=== PATIENT | female | born 1970 | race Caucasian/White ===

== ENCOUNTER 2018-11-19 07:39 | Day surgery (SDC) | payer BC ==
--- NOTE | 2018-11-05 06:53 | History and Physical - [facility] ---
CHIEF COMPLAINT/HISTORY OF CHIEF COMPLAINT: This patient presents with a history of an intractable lumbar radiculopathy. Due to the failure of therapy a spinal cord stimulator trial was conducted on 10/06/18 with 75+% pain control. Due to the failure of all therapy and the success of the trial, she presents today for implantation of a permanent system. PAST MEDICAL HISTORY: Hypertension. PAST SURGICAL HISTORY: Gallbladder surgery, gastric surgery, and hysterectomy. MEDICATIONS ON ADMISSION: List to be provided. ALLERGIES: BACTRIM. FAMILY/PSYCHOSOCIAL HISTORY: Social history - Caffeine. Family history - Diabetes, coronary artery disease and cancer. SYSTEMS REVIEW: The patient is appropriate in no acute distress. The remainder of the systems review is positive for glasses, blood pressure, and degenerative arthritis. PHYSICAL EXAMINATION: Height is 5'5", weight is 200 pounds. No vital signs. HEENT: Within normal limits. LUNGS: Clear. HEART: Rapid and regular. ABDOMEN: Nontender. MUSCULOSKELETAL: Examination of the musculoskeletal system shows diffuse tenderness throughout the lumbar spine. Range of motion causing pain into both legs across the front and back surface. Ambulation - No assistive device utilized. There currently are no appreciable motor or sensory abnormalities to the extremities. NEUROLOGIC: Cranial nerves are intact. IMPRESSION: LUMBAR RADICULOPATHY, ICD-10 CODE M54.16 AND M54.17. PLAN: The patient is here for implantation of a permanent spinal cord stimulator after successful trial and failure of therapy. The procedure will be considered outpatient although an overnight stay will be evaluated. The potential risks, side effect, and complications have all been reviewed and discussed. JOB NUMBER: [id number] MTDD
--- NOTE | 2018-11-19 06:36 | History and Physical - [facility] ---
CHIEF COMPLAINT/HISTORY OF CHIEF COMPLAINT: This patient presents with a history of intractable lumbar radiculopathy. Due to the failure of therapy and the success of a spinal cord stimulator trial on 10/06/18, the patient presents for implantation of a permanent system. PAST MEDICAL HISTORY: Hypertension. PAST SURGICAL HISTORY: Gallbladder, gastric surgery, and hysterectomy. MEDICATIONS ON ADMISSION: List to be provided. ALLERGIES: BACTRIM. FAMILY/PSYCHOSOCIAL HISTORY: Social history - Caffeine. Family history - Diabetes, coronary artery disease and cancer. SYSTEMS REVIEW: The patient is appropriate in no acute distress. The remainder of the systems review is positive for glasses, blood pressure, and degenerative arthritis. PHYSICAL EXAMINATION: Height is 5'5", weight is 200 pounds. No vital signs. HEENT: Within normal limits. LUNGS: Clear. HEART: Rapid and regular. ABDOMEN: Nontender. MUSCULOSKELETAL: Examination of the musculoskeletal system shows diffuse tenderness throughout the lumbar spine. Range of motion does produce pain into both lower extremities. No motor or sensory abnormalities are identified. No assistive device required for ambulation. NEUROLOGIC: Cranial nerves are intact. IMPRESSION: INTRACTABLE LUMBAR RADICULOPATHY, ICD-10 CODE M54.16 AND M54.17. PLAN: The patient is here for implantation of a permanent spinal cord stimulator after a successful trial. The procedure will be considered outpatient although an overnight stay will be evaluated. JOB NUMBER: [id number] [facility]
[~2018-11-19 07:39] MED LIST: ACETAMINOPHEN 1,000 MG/100 ML BTL IVPB ONE; CEFAZOLIN 2 Gram 2 GM/50 ML BAG IVPB ONE; FAMOTIDINE 20MG TABLET PO ONE; MECLIZINE 25 MG TABLET PO ONE; METOCLOPRAMIDE 10 MG TABLET PO ONE
[2018-11-19] MEDS ORDERED: LIDOCAINE 2% MDV (20MG/ML) 20ML VIAL IV ONE (07:40)
[2018-11-19] MEDS ORDERED: HYDROMORPHONE HCL 2 MG/ML VIAL IV ONE (07:40)
[2018-11-19] MEDS ORDERED: MIDAZOLAM HCL 2MG/2ML VIAL IV ONE (07:40)
[2018-11-19] MEDS ORDERED: PROPOFOL 10 MG/ML VIAL IV ONE (07:40)
[2018-11-19] MEDS ORDERED: FENTANYL PF 100MCG/2ML VIAL IV ONE (07:40)
[2018-11-19] MEDS ORDERED: RINGERS SOLUTION,LACTATED 1,000 ML IV ONE (08:48)
[2018-11-19] MEDS ORDERED: CEFAZOLIN 1G VIAL IR ONE (10:41)
[2018-11-19] MEDS ORDERED: LIDOCAINE 1% W/EPI 1:100,000 MDV 20 ML VIAL SQ ONE (11:17)
[2018-11-19] MEDS ORDERED: BUPIVACAINE 0.5% W/EPI MPF 30 ML VIAL SQ ONE (11:18)
--- NOTE | 2018-11-21 07:55 | RADIOLOGY REPORT ---
DATE: 11/19/2018 at 11:36 a.m. EXAM: SINGLE THORACOLUMBAR AP SPINE. HISTORY: Post spinal cord stimulator implant. TECHNIQUE: Single AP view of the thoracolumbar spine beginning at about the level of the T4 vertebra and extending down to the lumbosacral junction. COMPARISON: No prior thoracolumbar spine film with which to compare. FINDINGS: There is a metallic battery pack overlying the right mid abdomen with associated electrode leads extending from this to overlie the spine at the L2 level and then ascend up the mid portion of the spine to the level of the T6-7 interspace. There is a mild thoracolumbar curve convex to the left and a mild midthoracic curve partially seen convex to the right. There is scattered hypertrophic spurring in the spine. Apparent artifact overlying the right mid abdomen, probably related to placement of the battery pack. IMPRESSION: 1. THORACOLUMBAR CURVE CONVEX TO THE LEFT AND MIDTHORACIC CURVE CONVEX TO THE RIGHT WITH SCATTERED HYPERTROPHIC SPURRING IN THE SPINE. 2. BATTERY PACK IN THE RIGHT MID ABDOMEN WITH ASSOCIATED ELECTRODE LEADS EXTENDING UP TO THE LEVEL OF THE T6-7 INTERSPACE. Job Number: [id number] MTDD
--- NOTE | 2018-11-24 08:10 | Operative Note ---
DATE OF SURGERY: 11/19/2018 PREOPERATIVE DIAGNOSIS: Lumbar radiculopathy, ICD10 code 54.16 and M54.17. OPERATION: 1. Fluoroscopic-guided epidural access left T11-12, placement of spinal cord stimulator lead 1 [employer] Infinion 16, 6 electrodes positioned left T7. 2. Fluoroscopic-guided epidural access left T12-1, placement of spinal cord stimulator lead 2 [employer] Infinion 16, 6 electrodes positioned right T7. 3. Complex programming of lead 1 over 20 minutes followed by complex programming of lead 2 over 20 minutes. 4. Incision and subcutaneous dissection and anchoring of lead 1 and lead 2 to supraspinous fascia with a [employer] locking anchor. 5. Incision and subcutaneous dissection and creation of subcutaneous pouch at right flank for placement of generator, [employer] programmable rechargeable WaveWriter. 6. Tunneling between pouches, placement of external portion of lead 1 and lead 2 into generator pouch, each lead interfaced with generator. 7. Placement of generator pouch, placement of leads into pouch, closure of both incisions using Stratafix suture 2-0 fascia, 3-0 skin, and Dermabond closure. 8. Complex recovery room programming internal generator home use 2 stimulators recovery room 20 minutes. SURGEON: Panfilo Abbott DO ANESTHESIA: Local with sedation. ANESTHESIA PROVIDER: Amador Trivedi INDICATION: This patient presents with a history of intractable lumbar radiculopathy. Due to the failure of therapy, a spinal cord stimulator trial was conducted with 75% to 85% pain control. Due to the failure of all therapies and the success of the trial, the patient presents today for implantation of permanent system. PROCEDURE: Intravenous line, vital sign monitoring, IV sedation. Prepped and draped with sterile technique. Under imaging, the patient prone, sterile technique, imaging, local. The epidural interspace left of the midline at T11-12 and 12-1 were both marked, infiltrated. Two separate curved access Epimed needles with loss of resistance into the space atraumatic. No blood, no CSF at each. At 11-12, spinal cord stimulator lead 1, a [employer] Infinion 16, 6 electrodes advanced to the epidural space positioned left of the midline at T7. With the access then performed at 12-1, spinal cord stimulator lead 2, also [employer] Infinion 16, 6 electrodes advanced to the epidural space, positioned right of the midline at T7. With the patient awake, complex programming of lead 1 over 20 minutes followed by complex programming of lead 2 over 20 minutes resulting in complete pattern stimulation across the back and into the legs. Patient indicating we were in all the areas of the pain. The skin below both needles was then infiltrated with local. An incision made and subcutaneous dissection was conducted to supraspinous fascia. Each lead was then anchored to the supraspinous fascia with a [employer] locking anchor and nonabsorbable suture. At the right flank, a site picked by the patient for the generator, [employer] programmable rechargeable, skin infiltrated, incision made, and subcutaneous dissection was conducted to form a pouch suitable size and depth for the generator. Antibiotic irrigation and Bovie for hemostasis. The generator was then interfaced to the leads once the lead had been tunneled into the pouch. The leads were placed into their own pouch, generator into the pouch, and then both incisions were closed using Stratafix suture, 2-0 fascia, and 3-0 skin. Dermabond closure was then used to approximate the edges of both wounds. The patient was then transported to recovery room stable. No side effects from the procedure or sedation. When fully awake and alert, complex programming was then performed of the 2 leads over 20 minutes reestablishing stimulation. The patient was then prepared for discharge home by her request. DISCHARGE INSTRUCTIONS: 1. The sites to remain clean and dry. No showering or bathing in any way that would disrupt the dressings. If it happens, contact the clinic. 2. Standard medications resumed including the antibiotic Levaquin. She will take 500 mg once a day for 14 days. 3. The office to contact the patient in the 12-24 hours to set up a time in the next 7-10 days for us to evaluate the sites. Until then, she is to keep her activities low. Limit bend, lift, push, pull. The antibiotic has been called. All instructions provided. She was then discharged. DAO
== END 2018-11-19 12:27 | disposition home or self-care (01) ==
LOC: SUR 07:39
PROVIDERS: ATTEND Pain Medicine Interventional Pain Medicine
DX: M54.16 Radiculopathy, lumbar region (principal); M54.17 Radiculopathy, lumbosacral region; I10 Essential (primary) hypertension; F41.9 Anxiety disorder, unspecified
CPT/HCPCS: 72020; 85002; 95972; C1820; C1883; J0690; J7120